=== PATIENT | male | born 1950 | race Caucasian/White ===

== ENCOUNTER 2022-02-02 09:45 | Outpatient (CLI) | payer MEDICARE, OTHER ==
[2022-02-02 11:25] LABS: Hemoglobin 13.9 g/dL (13.5-17.5)
[2022-02-02 11:43] LABS: Anion Gap 11 mmol/L (10-20); BUN (Urea Nitrogen) 15 mg/dL (8.4-25.7); Calc. Creatinine Clearance 0 mL/min (70-130); Calcium 9.7 mg/dL (7.8-10.44); Carbon Dioxide 28 mmol/L (23-31); Chloride 105 mmol/L (98-107); Estimated GFR 73; Glucose 82 mg/dL (80-115); Potassium 3.9 mmol/L (3.5-5.1); Sodium 140 mmol/L (136-145)
== END 2022-02-02 09:46 | disposition home or self-care (01) ==
LOC: CSHLAB 09:45
PROVIDERS: ATTEND Otolaryngology Otolaryngic Allergy
DX: Z01.818 Encounter for other preprocedural examination (principal); C73 Malignant neoplasm of thyroid gland; C77.0 Secondary and unspecified malignant neoplasm of lymph nodes of head, face and neck
CPT/HCPCS: 80048; 85014; 85018; 93005; 93010

== ENCOUNTER 2022-02-02 10:15 | Inpatient (IN) | payer MEDICARE, OTHER ==
[2022-02-07] MEDS ORDERED: Lidocaine 1% PF 5 ML VIAL ONE (09:24)
[2022-02-07] MEDS ORDERED: PROPOFOL 20 ML ONE ×2 (09:24→12:49)
[2022-02-07] MEDS ORDERED: Rocuronium Bromide 10 MG/ML (10ML VIAL) ONE (09:24)
[2022-02-07] MEDS ORDERED: Dexamethasone 20 MG/5 ML VIAL ONE (09:24)
[2022-02-07] MEDS ORDERED: Midazolam HCl 2 mg/2 ml Vial ONE (09:24)
[2022-02-07] MEDS ORDERED: Fentanyl 100 MCG/2 ML VIAL ONE ×2 (09:24→12:12)
[2022-02-07] MEDS ORDERED: Ondansetron PF 4 MG/2 ML Vial ONE (09:24)
[2022-02-07 10:08] LABS: SARS-CoV-2 NAA Rapid Test DETECTED (NotDetected)
[2022-02-07] MEDS ORDERED: CEFAZOLIN 2 GM VIAL ONE (10:22)
[2022-02-07] MEDS ORDERED: Ondansetron PF 4 MG/2 ML Vial IVP PRN (10:35)
[2022-02-07] MEDS ORDERED: Ondansetron ODT 4 MG TAB PO PRN (10:35)
[2022-02-07] MEDS ORDERED: HYDROcodone/Acetaminophen 5/325 mg Tablet PO PRN ×2 (10:35)
[2022-02-07] MEDS ORDERED: Morphine 4 MG/ML VIAL SLOW IVP PRN (10:46)
[2022-02-07] MEDS ORDERED: ePHEDrine Sulfate 50 MG/10 ML VIAL ONE (11:36)
[2022-02-07] MEDS ORDERED: Glycopyrrolate 0.2 MG/ML 5 ML SYRINGE ONE (11:37)
[2022-02-07 14:35] VITALS: BMI 29.0
[2022-02-07] MEDS: Calcium Carbonate 500 MG ChewTAB PO SCH ×2 (15:27→21:18)
[2022-02-07] MEDS: CEFAZOLIN 1 GM in Sodium Chloride 0.9% 100 ML IVPB SCH (17:56)
[2022-02-07] MEDS: Sodium Chloride 0.9% 1,000 ML IV SCH (19:36)
[2022-02-07] MEDS: ALPRAZolam 0.5 MG TAB PO SCH (21:18)
[2022-02-07] MEDS: Atorvastatin Calcium 20 MG TAB PO SCH (21:18)
[2022-02-07] MEDS: Trospium 20 MG TAB PO SCH (21:20)
[2022-02-08] MEDS: CEFAZOLIN 1 GM in Sodium Chloride 0.9% 100 ML IVPB SCH ×3 (02:06→17:25)
[2022-02-08] MEDS: Sodium Chloride 0.9% 1,000 ML IV SCH ×2 (02:06→09:51)
[2022-02-08] MEDS: Trospium 20 MG TAB PO SCH ×2 (07:57→21:46)
[2022-02-08] MEDS: Finasteride 5 MG TAB PO SCH (08:04)
[2022-02-08] MEDS: Hydrochlorothiazide 25 MG TAB PO SCH (08:04)
[2022-02-08] MEDS: Lisinopril 20 MG TAB PO SCH (08:04)
[2022-02-08] MEDS: Tamsulosin HCl 0.4 MG CAP PO SCH (08:04)
[2022-02-08] MEDS: Calcium Carbonate 500 MG ChewTAB PO SCH ×3 (08:04→21:45)
[2022-02-08 20:55] LABS: Anion Gap 11 mmol/L (10-20); BUN (Urea Nitrogen) 22 mg/dL (8.4-25.7); Calc. Creatinine Clearance 76 mL/min (70-130); Calcium 8.8 mg/dL (7.8-10.44); Carbon Dioxide 27 mmol/L (23-31); Chloride 107 mmol/L (98-107); Estimated GFR 68; Glucose 111 mg/dL (80-115); Potassium 3.7 mmol/L (3.5-5.1); Sodium 141 mmol/L (136-145)
[2022-02-08] MEDS: Atorvastatin Calcium 20 MG TAB PO SCH (21:45)
[2022-02-08] MEDS: ALPRAZolam 0.5 MG TAB PO SCH (21:46)
[2022-02-09] MEDS: Sodium Chloride 0.9% 1,000 ML IV SCH (01:46)
[2022-02-09] MEDS: CEFAZOLIN 1 GM in Sodium Chloride 0.9% 100 ML IVPB SCH ×2 (01:54→10:30)
[2022-02-09] MEDS: Calcium Carbonate 500 MG ChewTAB PO SCH ×3 (09:51→21:20)
[2022-02-09] MEDS: Trospium 20 MG TAB PO SCH ×2 (09:51→21:20)
[2022-02-09] MEDS: Tamsulosin HCl 0.4 MG CAP PO SCH (09:51)
[2022-02-09] MEDS: Lisinopril 20 MG TAB PO SCH (09:53)
[2022-02-09] MEDS: Finasteride 5 MG TAB PO SCH (09:54)
[2022-02-09] MEDS: Hydrochlorothiazide 25 MG TAB PO SCH (09:58)
[2022-02-09] MEDS: Cephalexin 250 MG/5 ML Oral Suspension PO SCH ×2 (17:45→21:21)
[2022-02-09] MEDS: ALPRAZolam 0.5 MG TAB PO SCH (21:20)
[2022-02-09] MEDS: Atorvastatin Calcium 20 MG TAB PO SCH (21:20)
[2022-02-10] MEDS: Lisinopril 20 MG TAB PO SCH (09:41)
[2022-02-10] MEDS: Finasteride 5 MG TAB PO SCH (09:41)
[2022-02-10] MEDS: Trospium 20 MG TAB PO SCH (09:41)
[2022-02-10] MEDS: Tamsulosin HCl 0.4 MG CAP PO SCH (09:42)
[2022-02-10] MEDS: Hydrochlorothiazide 25 MG TAB PO SCH (09:43)
[2022-02-10] MEDS: Calcium Carbonate 500 MG ChewTAB PO SCH (09:43)
[2022-02-10] MEDS: Cephalexin 250 MG/5 ML Oral Suspension PO SCH ×2 (09:43→13:45)
[2022-02-10 12:26] VITALS: BP 111/61; TEMP 97.6
== END 2022-02-10 14:10 | disposition home or self-care (01) | DRG 625 ==
LOC: CSHERHOLD 02-07 07:46 → EDSTATUS 02-07 10:15 → CSHICU 02-07 14:32 → CSHTELE 02-08 18:21
PROVIDERS: ADMIT Otolaryngology Otolaryngic Allergy; ATTEND Otolaryngology Otolaryngic Allergy
PROC: 0GTK0ZZ Resection of Thyroid Gland, Open Approach (ICD-10-PCS; principal; 2022-02-07)
PROC: 07T20ZZ Resection of Left Neck Lymphatic, Open Approach (ICD-10-PCS; 2022-02-07)
PROC: 07T10ZZ Resection of Right Neck Lymphatic, Open Approach (ICD-10-PCS; 2022-02-07)
PROC: 0GBL0ZZ Excision of Right Superior Parathyroid Gland, Open Approach (ICD-10-PCS; 2022-02-07)
DX: C73 Malignant neoplasm of thyroid gland (principal); U07.1 COVID-19; C77.0 Secondary and unspecified malignant neoplasm of lymph nodes of head, face and neck; F17.210 Nicotine dependence, cigarettes, uncomplicated; Z80.9 Family history of malignant neoplasm, unspecified; Z98.890 Other specified postprocedural states; Z79.899 Other long term (current) drug therapy; Z90.89 Acquired absence of other organs
CPT/HCPCS: 36415; 74230; 82310; 83970; 88305; 88307; 88331; 94760; J0690; J1100; J2250; J2270; J2405; J2704; J3010; J3490; J7050; U0002